=== PATIENT | male | born 1990 | race Caucasian/White ===

== ENCOUNTER 2020-12-27 21:57 | Emergency (ER) | payer MEDICAID ==
--- NOTE | 2020-12-27 23:21 | EDM.PDOC ---
ED HPI GENERAL MEDICAL PROBLEM - General Chief Complaint: Skin Complaint Stated Complaint: HAND LAC Time Seen by Provider: 12/27/20 23:21 - History of Present Illness INITIAL COMMENTS - FREE TEXT/NARRATIVE: 30-year-old male injured his right ring finger shortly before coming. Patient was climbing a chain link fence and caught one of the barbs with his ring finger on the right hand. He has a puncture type wound here he is con cerned because it is a little bit of dark debris right under the skin. Patient cannot recall when his last tetanus shot was. - Related Data Allergies Allergy/AdvReac Type Severity Reaction Status Date / Time No Known Allergies Allergy Verified 12/27/20 22:42 Home Meds: Home Meds predniSONE 10 mg PO DAILY 12/27/20 [History] Past Medical History HEENT History: Reports: None Cardiovascular History: Reports: None Respiratory History: Reports: None Gastrointestinal History: Reports: GERD Genitourinary History: Reports: None Musculoskeletal History: Reports: Other (See Below) Other Musculoskeletal History: GB Neurological History: Reports: None Psychiatric History: Reports: None Endocrine/Metabolic History: Reports: None Hematologic History: Reports: None Immunologic History: Reports: None Oncologic (Cancer) History: Reports: None Dermatologic History: Reports: None - Infectious Disease History Infectious Disease History: Reports: Chicken Pox - Past Surgical History HEENT Surgical History: Reports: Oral Surgery GI Surgical History: Reports: None Musculoskeletal Surgical History: Reports: None Social & Family History - Family History Family Medical History: No Pertinent Family History - Tobacco Use Tobacco Use Status *Q: Never Tobacco User - Caffeine Use Caffeine Use: Reports: Coffee, Energy Drinks, Soda, Tea - Recreational Drug Use Recreational Drug Use: No ED ROS GENERAL - Review of Systems Review Of Systems: See Below Constitutional: Reports: No Symptoms Respiratory: Reports: No Symptoms Cardiovascular: Reports: No Symptoms GI/Abdominal: Reports: No Symptoms ED EXAM, SKIN/RASH Exam: See Below Exam Limited By: No Limitations General Appearance: Alert, No Apparent Distress Head: Atraumatic, Normocephalic Respiratory/Chest: No Respiratory Distress, Lungs Clear, Normal Breath Sounds Cardiovascular: Normal Peripheral Pulses, Regular Rate, Rhythm, No Edema Extremities: Other (Neurovascular and tendon function of the right hand is intact) Skin: Other (Near the base of the ring finger radial aspect of the right hand is what looks like a puncture wound. There is no obvious debris in there there is a little bit of discoloration that is dark in there it is minimally tender to palpation.) Course - Vital Signs Last Recorded V/S: Last Vital Signs Temp 36.2 C 12/27/20 22:45 Pulse 94 12/27/20 22:45 Resp 18 12/27/20 22:45 BP 111/72 12/27/20 22:45 Pulse Ox 98 12/27/20 22:45 - Orders/Labs/Meds Orders: Active Orders 24 hr Category Date Time Status Vaccines to be Administered [RC] PER UNIT ROUTINE Care 12/27/20 23:30 Active Meds: Medications Discontinued Medications Generic Name Dose Route Start Last Admin Trade Name Freq PRN Reason Stop Dose Admin Diphtheria/Tetanus/Acell Pertussis 0.5 ml 12/27/20 23:29 12/27/20 23:35 Diphtheria,Pertussis(Acell),Tetanus Vaccine 0.5 Ml Syringe IM 12/27/20 23:30 0.5 ml .ONCE ONE Administration - Re-Assessments/Exams Free Text/Narrative Re-Assessment/Exam: 12/27/20 23:47 At this point we will update the patient's tetanus apply some antibiotic ointment and a Band-Aid he is not having any bleeding I discussed the pros and cons of primary repair pair with the patient I do not believe stitches would improve the outcome of this at all but they would increase the risk of infection. The patient agrees on conservative management. Departure - Departure Time of Disposition: 23:47 Disposition: Home, Self-Care 01 Clinical Impression: Puncture wound of right ring finger - Discharge Information Referrals: Bala Cabrales MD [Primary Care Provider] - Forms: ED Department Discharge Additional Instructions: Return to the emergency room with any questions problems or worsening symptoms. Keep the wound clean and dry. Follow-up with your regular physician if needed. Sepsis Event Note (ED) - Evaluation Sepsis Screening Result: No Definite Risk - Focused Exam Vital Signs: Vital Signs Temp Pulse Resp BP Pulse Ox 12/27/20 22:45 36.2 C 94 18 111/72 98 - My Orders Last 24 Hours: My Active Orders 12/27/20 23:30 Vaccines to be Administered [RC] PER UNIT ROUTINE - Assessment/Plan Last 24 Hours: My Active Orders 12/27/20 23:30 Vaccines to be Administered [RC] PER UNIT ROUTINE
[2020-12-27] MEDS ORDERED: Diphtheria,Pertussis(Acell),Tetanus Vaccine 0.5 ML Syringe IM ONE (23:29)
== END 2020-12-27 23:58 | disposition home or self-care (01) ==
LOC: JD.ED 21:57
DX: S61.234A Puncture wound without foreign body of right ring finger without damage to nail, initial encounter (principal); Z23 Encounter for immunization; W26.8XXA Contact with other sharp object(s), not elsewhere classified, initial encounter
CPT/HCPCS: 90471; 90715; 99282-25